=== PATIENT | male | born 1940 | race Caucasian/White ===

== ENCOUNTER 2017-07-11 15:00 | Inpatient (IN) | payer MEDICARE, BC ==
[~2017-07-11] VITALS: Ht 177.8 cm; Wt 112.0 kg
--- NOTE | ~2017-07-11 | HP ---
PATIENT'S NAME: [facility] AGE: 76 Y [address] ROOM: [place] [address] LOCATION: [facility] ADMIT DATE: 07/11/2017 History & Physical DISCHARGE DATE: FAMILY PHYSICIAN: Myron Aponte MD ATTENDING PHYSICIAN: STACIE VICTOR DATE OF SERVICE: CHIEF COMPLAINT: Right hip fracture, fall. HISTORY OF PRESENT ILLNESS: This is a 76-year-old male with a history of diabetes, paroxysmal AFib, on Pradaxa who presented to the emergency room after sustaining a mechanical fall and right hip injury. The patient tells me that he missed a step while walking out to the garage, lost his balance, and fell, sustaining a hip injury. The patient remembers falling and denies any loss of consciousness, dizziness, lightheadedness, either prior to falling or after falling. Denies any head injury. The patient complains of significant right hip pain, worsened by movement. The pain is well-tolerated while at rest. The patient of note has a history of paroxysmal AFib and is on Pradaxa and he took his last dose at around 9 a.m. this morning. The patient otherwise denies any chest pain, shortness of breath, dizziness, lightheadedness, nausea, vomiting, diarrhea, or constipation. Denies any fever or chills as well. PAST MEDICAL HISTORY: 1. Paroxysmal AFib. 2. History of aortic aneurysm, status post endovascular repair. 3. Type 2 diabetes. SOCIAL HISTORY: Denies any history of smoking, occasional alcohol use, or drug use. FAMILY HISTORY: The patient has a history of hypertension in his parents. REVIEW OF SYSTEMS: All systems have been reviewed and were all negative except as described in the HPI. PHYSICAL EXAMINATION: VITAL SIGNS: Blood pressure 109/65, pulse 116, respiratory rate 16, temperature 98, and saturating 95% on room air. GENERAL: The patient is awake, alert, and oriented x3 in no acute distress. HEAD: Normocephalic, atraumatic. PATIENT'S NAME: [facility] AGE: 76 Y [address] ROOM: [place] [address] LOCATION: [facility] ADMIT DATE: 07/11/2017 History & Physical DISCHARGE DATE: FAMILY PHYSICIAN: Myron Aponte MD ATTENDING PHYSICIAN: STACIE VICTOR EENT: Moist mucous membranes. No scleral icterus or conjunctival pallor noted. HEART: S1, S2, regular rate and rhythm, tachycardic. CHEST: Clear to auscultation bilaterally. ABDOMEN: Soft, nontender, nondistended. EXTREMITIES: Without edema. MUSCULOSKELETAL: Pain over his right hip with passive and active range of motion. SKIN: Without rash or lesions. NEURO: Grossly nonfocal, unable to move right lower extremity due to hip injury and pain. LABORATORY DATA: Reviewed. ASSESSMENT AND PLAN: 1. Right hip fracture, secondary to mechanical fall. The patient is to have hemiarthroplasty in about 48 hours. The patient took last dose of Pradaxa this morning and will need to be off Pradaxa for at least [address] Vizcaino and the plan is to take him to the OR on , which would be between 48 and 72 hours past Pradaxa. 2. Paroxysmal atrial fibrillation, he is on amiodarone at home, we will continue this and hold Pradaxa as above, and we will try to resume after surgery as soon as possible. The patient should not require bridging at this point. 3. Long-term anticoagulation use for stroke prophylaxis and atrial fibrillation. Management is as above. 4. Type 2 diabetes. The patient on oral hypoglycemic agents at home. We will hold these and use sliding scale insulin and monitor during hospitalization. 5. History of abdominal aortic aneurysm, status post endovascular repair. 6. Deep vein thrombosis prophylaxis, we will use sequential compression devices, and we will give him Pradaxa as soon as possible after surgery. STACIE VICTOR MD BG/modl /[id number] D: [id number] T: [id number] HISTORY & PHYSICAL
--- NOTE | ~2017-07-11 | ER ---
PATIENT'S NAME: YON PEÑA [facility] AGE: 76 Y [address] ROOM: [place] [address] LOCATION: [facility] ADMIT DATE: 07/11/2017 ER/Outpatient Report DISCHARGE DATE: FAMILY PHYSICIAN: Myron Aponte MD ATTENDING PHYSICIAN: STACIE MAURICIO CHIEF COMPLAINT: Fall and right hip pain. HISTORY OF PRESENT ILLNESS: Mr. Peña arrives by ambulance. He states that he was coming down some stairs, stumbled on the last stair for a few steps and fell on his right side. He denies striking his head. He denies having any other symptoms. He just has pain anytime he tries to move his right hip. He has not been able to stand up. He has no other pain. Denies loss of consciousness or other issue. He has a history of aorto, fem-fem grafting secondary to abdominal aortic aneurysm and is on Pradaxa for same. He is otherwise feeling fine. PAST MEDICAL HISTORY: Documented in the record and reviewed by me. SOCIAL HISTORY: Documented in the record and reviewed by me. MEDICATIONS: Documented in the record and reviewed by me. ALLERGIES: DOCUMENTED IN THE RECORD AND REVIEWED BY ME. REVIEW OF SYSTEMS: All systems were reviewed and negative except as noted in the HPI. PHYSICAL EXAMINATION: VITAL SIGNS: Blood pressure is 109/65, pulse 116, respiratory rate 16, temperature 98.6, and SpO2 is 95% on room air. Pain is rated at 2/10. GENERAL: Age-appropriate male, in no obvious pain or distress. Recumbent on the exam table. NEUROLOGIC: Awake and alert. GCS is 15. No focal deficits. No asymmetry. Limited by pain at the right hip. HEENT: Normocephalic and atraumatic. Eyes are PERRL. Oropharynx is clear. NECK: Supple. Trachea is midline. CHEST: Heart is regular rate and rhythm with no murmurs. LUNGS: Clear to auscultation bilaterally with no rhonchi, wheezes, or rales. ABDOMEN: Soft, nontender, and nondistended. No rebound or guarding. PATIENT'S NAME: YON PEÑA [facility] AGE: 76 Y [address] ROOM: [place] [address] LOCATION: [facility] ADMIT DATE: 07/11/2017 ER/Outpatient Report DISCHARGE DATE: FAMILY PHYSICIAN: Myron Aponte MD ATTENDING PHYSICIAN: STACIE MAURICIO BACK: Normal to inspection and palpation grossly. PELVIS: Stable. EXTREMITIES: The right lower extremity is notable for tenderness at the lateral trochanter and posterolateral aspects of the hip. No tenderness anteriorly. The leg is otherwise neurovascularly intact. No tenderness at the knee or ankle. The other extremities are grossly unremarkable. SKIN: Clean, dry, and intact. No obvious bleeding or bruising. LABORATORY DATA: Labs: CMS with no appreciable electrolyte abnormalities, renal abnormalities, or hepatobiliary abnormalities. CPK is 94. CBC: White count 6.2, hemoglobin 11.7, and platelets are 203,000. INR is 1.3. Blood type is B-positive. EKG appears to be atrial fibrillation with a rate of 100. IMAGING STUDIES: Plain films of the right hip revealed a femoral neck fracture, minimally displaced. IMPRESSION: 1. Fall. 2. Right femoral neck fracture. 3. Atrial fibrillation, undetermined etiology. Hemodynamically stable. EMERGENCY DEPARTMENT COURSE: The patient was seen and evaluated as above. He received the workup as noted above. He did not require any medications while in the emergency department. He remained hemodynamically stable and asymptomatic other than pain in his right hip. I do not think he needs scans of his head or neck. He states he clearly remembers everything and denies striking his head or neck. He has no headache or other neurological symptoms. He is on Pradaxa. He does have atrial fibrillation, but is hemodynamically stable. We will admit him to Dr. Mauricio, hospitalist for further evaluation and treatment of his medical status as well as consultation with Dr. Vizcaino, orthopedic surgeon for hip evaluation. All questions were answered and the patient was admitted without issues. MD FELIPA GRANADOS/flynn PATIENT'S NAME: YON PEÑA [facility] AGE: 76 Y [address] ROOM: [address] [address] LOCATION: [facility] ADMIT DATE: 07/11/2017 ER/Outpatient Report DISCHARGE DATE: FAMILY PHYSICIAN: Myron Aponte MD ATTENDING PHYSICIAN: STACIE MAURICIO /[id number] d: 07/12/17 1454 t: 07/17/17 0640, OUTPATIENT REPORT
--- NOTE | ~2017-07-11 | CON ---
PATIENT'S NAME: YON PEÑA [facility] AGE: 76 Y [address] ROOM: [place] [address] LOCATION: [facility] ADMIT DATE: 07/11/2017 Consultation DISCHARGE DATE: FAMILY PHYSICIAN: Myron Aponte MD ATTENDING PHYSICIAN: STACIE VICTOR REFERRING PHYSICIAN: SANTA PUGA MD HISTORY OF PRESENT ILLNESS: Mr. Peña is a 76-year-old male, who presents to the [facility] Emergency Room with a chief complaint of right hip pain after he tripped and fell while exiting his home to mow his lawn earlier today. He has been diagnosed with a displaced femoral neck fracture. The family has requested I care for his injury due to the fact that I cared for multiple family members in the past. He denies associated syncope or presyncope. He denies associated head trauma or loss of consciousness. He denies history of preexisting right hip pain. He denies numbness or paresthesias in the right leg. He denies neck pain. He denies pain in any of his 3 other extremities as a result of the fall. ALLERGIES: NO KNOWN DRUG ALLERGIES. MEDICATIONS: On admission: 1. Pradaxa. 2. Lipitor. 3. Carvedilol. 4. Ramipril. 5. Metformin. 6. Furosemide. ACTIVE MEDICAL PROBLEMS: Gbr-nyjnaho-nqwhxybdt diabetes mellitus, dyslipidemia. PAST SURGICAL HISTORY: Repair of abdominal aortic aneurysm several months ago. His last dose of Pradaxa was this morning. SOCIAL HISTORY: . He lives independently with his . At baseline, he is quite active (mowing his lawn with a push mower and ambulating in the community without an assistive device). He plans on remaining active in the foreseeable future. REVIEW OF SYSTEMS: He denies history of deep venous thrombosis. He denies head trauma or loss of consciousness. He denies chest pain or shortness of breath. He denies PATIENT'S NAME: YON PEÑA [facility] AGE: 76 Y [address] ROOM: [address] [address] LOCATION: [facility] ADMIT DATE: 07/11/2017 Consultation DISCHARGE DATE: FAMILY PHYSICIAN: Myron Aponte MD ATTENDING PHYSICIAN: STACIE VICTOR history of preexisting right hip pain. He denies pain elsewhere as a result of the incident. PHYSICAL EXAMINATION: GENERAL: Alert, oriented, well-hydrated, well-nourished, pleasant, cooperative, stoic elderly gentleman, who is in no distress. He is well- hydrated and well-nourished. RESPIRATORY: Respiratory rate is 16. There is no increased work of breathing. There is no stridor. MUSCULOSKELETAL: His right lower extremity is shortened and externally rotated versus the left. There is tenderness at the right hip and pain with passive range of motion of the right hip. There is no swelling or tenderness or deformity at either knee or either ankle. There is no pain with passive range of motion of the left hip. There are no active skin lesions, masses, muscle atrophy, or peripheral edema in either lower extremity. He demonstrates painless, unrestricted active range of motion of his cervical spine. There is no swelling, tenderness, or deformity throughout either upper extremity. He is able to actively dorsiflex and plantar flex both ankles with 4/5 motor strength. 2+ dorsalis pedis pulse bilaterally. RADIOGRAPHS: AP pelvis and AP and lateral radiographs of the right hip demonstrate a moderately displaced right femoral neck fracture. There is no hardware. There is no lytic lesion. There is no joint space narrowing. There is a transcervical fracture. Contralateral hip appears normal. IMPRESSION: Displaced right femoral neck fracture. RECOMMENDATIONS: I have discussed operative and nonoperative options. I have discussed relative risks, benefits, limitations, and alternatives to internal fixation versus hemiarthroplasty versus total hip arthroplasty. Based upon the fact that he is still quite active, I feel that his best chance of having one operation (and one operation only) would be for him to have a total hip arthroplasty. I have informed him that hemiarthroplasty would carry a significant risk of developing symptomatic acetabular articular cartilage degeneration (requiring PATIENT'S NAME: YON PEÑA [facility] AGE: 76 Y [address] ROOM: [address] [address] LOCATION: [facility] ADMIT DATE: 07/11/2017 Consultation DISCHARGE DATE: FAMILY PHYSICIAN: Myron Aponte MD ATTENDING PHYSICIAN: STACIE VICTOR conversion to total hip arthroplasty) in the next decade. I have discussed potential adverse sequelae of the injury itself (including deep venous thrombosis, pulmonary embolism, mortality, decubitus ulcer formation, and pneumonia). I have discussed technical aspects of surgery as well as risks and limitations thereof. We have specifically discussed the potential for infection, deep venous thrombosis, pulmonary embolism, mortality, neurovascular complications, blood transfusion risks, leg length discrepancy, instability, wear, loosening, and potential need for revision. The patient has been placed at bedrest. Mechanical DVT prophylaxis and incentive spirometry have been initiated. The patient's Pradaxa will be held and tentative plans for surgery have been made for day after tomorrow (pending medical clearance and operating room availability). The consulting medical team has recommended delay in surgery until day after tomorrow (because of the patient's anticoagulated status). MD INOCENCIA ARROYO/flynn /[id number] d: 07/12/17 0229 t: 07/15/17 1150, CONSULTATION REPORT
--- NOTE | ~2017-07-11 | DS ---
PATIENT'S NAME: [facility] AGE: 76 Y [address] ROOM: [address] [address] LOCATION: [facility] ADMIT DATE: 07/11/2017 Discharge Summary DISCHARGE DATE: 07/16/2017 FAMILY PHYSICIAN: Myron Aponte MD ATTENDING PHYSICIAN: Suni Mauricio ADMITTING DIAGNOSIS: Right hip fracture. DISCHARGE DIAGNOSIS: Right hip fracture with status post total hip arthroplasty. SECONDARY DIAGNOSES: 1. Chronic atrial fibrillation. 2. Diabetes mellitus type 2. 3. Hypertension. PROCEDURE: The patient had right total hip arthroplasty on July [address] Vizcaino. CONSULTATION: Orthopedics. HISTORY OF PRESENT ILLNESS: The patient is a 76-year-old male with a history of diabetes mellitus type 2, paroxysmal atrial fibrillation on Pradaxa who presented with mechanical fall. The patient reports that he lost his balance and denies any dizziness, chest pain, or any seizure-like activity. The patient complained of right hip pain. X-ray shows right hip fracture. HOSPITAL COURSE: The patient was admitted and was cleared for surgery. Dr. Vizcaino was consulted for right hip fracture. The patient had right total hip arthroplasty on 07/13/2017. The patient tolerated the procedure well. The patient during stay was seen by Physical Therapy and Occupational Therapy. The patient was restarted back on his Pradaxa. CONDITION: Stable. DISPOSITION: Home. DISCHARGE MEDICATIONS: See JAN. FOLLOWUP: Follow up with Dr. Vizcaino in 7-9 days. PHYSICAL EXAMINATION: VITAL SIGNS: Stable. CHEST: Clear to auscultation bilaterally. HEART: Regular rate and rate and rhythm. No murmurs, rubs, or gallops. ABDOMEN: Soft, nontender, and nondistended. PATIENT'S NAME: [facility] AGE: 76 Y [address] ROOM: [address] [address] LOCATION: [facility] ADMIT DATE: 07/11/2017 Discharge Summary DISCHARGE DATE: 07/16/2017 FAMILY PHYSICIAN: Myron Aponte MD ATTENDING PHYSICIAN: Suni Mauricio EXTREMITIES: Moves all extremities. CONTENT CURATOR: The patient is alert and oriented x3. Motor and sensory grossly intact. Greater than 30 minutes was spent on discharge planning. MD Priti RAINES /[id number] d: 07/16/17 1212 t: 07/24/17 0845, DISCHARGE SUMMARY
--- NOTE | ~2017-07-11 | OR ---
PATIENT'S NAME: [facility] AGE: 76 Y [address] ROOM: [place] [address] LOCATION: G3N ADMIT DATE: 07/11/2017 OR/Procedure Report DISCHARGE DATE: 07/16/2017 FAMILY PHYSICIAN: Myron Aponte MD ATTENDING PHYSICIAN: Suni Mauricio SURGEON: Lei Vizcaino MD CARPENTER HELPER MAINTENANCE: 1. Rosalio Rodriguez PA-C. 2. Jose Taylor CST/DIGITAL COMMUNICATIONS MANAGER. DATE OF PROCEDURE: 07/13/2017 CORRECT TEMPLATE INSERTED / 07-19-2017 / CANDICE PRE-OP DIAGNOSIS: Displaced right femoral neck fracture, right hip. POST-OP DIAGNOSIS: Displaced right femoral neck fracture, right hip. OPERATION: Right total hip arthroplasty. ANESTHESIA: General endotracheal anesthesia plus subcutaneous and periarticular local anesthesia. ESTIMATED BLOOD LOSS: Approximately 250 mL. DRAIN: None. SPECIMEN: None. COMPLICATIONS: None. IMPLANTS: 1. Robbin Trident titanium size 54 mm hemispherical uncemented acetabular shell with 1 dome hole cover and no screws. 2. Robbin X3 Neutral acetabular polyethylene liner, 10-degree eccentric with elevation centered at the 2 o' clock position. 3. Robbin Omnifit on BATOOL femoral size 8 cemented high offset femoral stem with 12 mm distal cement centralizer and medium cement restrictor. Taj- Kamaljit 2 mm cable and sleeve. 4. A 36 mm diameter metallic femoral head with +10 mm neck length. INDICATION FOR SURGERY: Dominique Peña is a 76-year-old male who presents with advanced right hip displaced right femoral neck fracture and associated severely compromised activities of daily living. The patient has decided to proceed with hip replacement after having been thoroughly counseled regarding the associated risks, benefits, and limitations. We have specifically reviewed the risks and implications of infection, deep venous thrombosis, pulmonary embolism, mortality, neurovascular complications, blood transfusion (and associated potential for disease transmission or transfusion reaction), PATIENT'S NAME: [facility] AGE: 76 Y [address] ROOM: [place] [address] LOCATION: [facility] ADMIT DATE: 07/11/2017 OR/Procedure Report DISCHARGE DATE: 07/16/2017 FAMILY PHYSICIAN: Myron Aponte MD ATTENDING PHYSICIAN: Suni Mauricio stiffness, instability, leg length discrepancy, mechanical deterioration of the components (due to wear and to loosening), and the potential need for revision. DESCRIPTION OF PROCEDURE: The patient was positioned in a lateral decubitus position with the right side up after administration of anesthesia and prophylactic antibiotics. An axillary roll was placed and the non-operative leg was well padded. The pelvis was locked perpendicularly to the floor on a pegboard. The right hip and entire operative extremity were prepped and draped with vigilant sterile technique. The patient's name as well as the intended operative side and procedure were confirmed with a verbal time-out involving myself, the circulating nurse, the scrub nurse, and the anesthesiologist. The right hip was approached through a standard posterolateral incision. The fascia elisa and the gluteus cleveland fascia were sharply divided in line with the overlying skin incision. The sciatic nerve was identified and was vigilantly protected throughout the entire case. The short external rotators and posterior capsule were divided from their respective femoral insertions and tagged with four #1 Ethibond sutures for later repair. The hip was posteriorly dislocated with combined flexion, adduction, and internal rotation. The femoral neck osteotomy was performed with an oscillating saw. Inspection of the femoral head demonstrated no degenerative changes. There is a displaced femoral neck fracture with vertical orientation of the fracture. The fracture extended down to approximately 5 mm proximal to the lesser trochanter. A prophylactic cerclage cable was placed immediately proximal to the lesser trochanter to prevent distal propagation of the femoral neck fracture. Circumferential acetabular exposure was obtained. Examination of acetabulum demonstrated no degenerative changes. There was a large hemarthrosis. There was no dysplasia. Remnants of the acetabular labrum were sharply thoroughly excised. The acetabulum was sequentially progressively reamed up to 53 mm with hemispherical power reamers. The final acetabular shell was impacted into position in 20 degrees of anteversion and 45 degrees of inclination. An excellent press-fit was obtained. No supplemental dome screw fixation was necessary. The patient was noted to be severely osteopenic. A neutral trial liner was inserted. Attention was next focused upon femoral preparation. The femoral canal initiator was utilized. The femoral canal was initially prepared for a size 8 press-fit Accolade II stem. However, due to the extent of osteopenia, I decided to convert to a cemented stem. The femoral canal was reamed by hand PATIENT'S NAME: [facility]INIQUE [facility] AGE: 76 Y [address] ROOM: [address] [address] LOCATION: [facility] ADMIT DATE: 07/11/2017 OR/Procedure Report DISCHARGE DATE: 07/16/2017 FAMILY PHYSICIAN: Myron Aponte MD ATTENDING PHYSICIAN: Suni Mauricio to a size 8. No power reaming was performed. The size 8 tapered conical reamer engaged the endosteal cortex of the proximal femur. The size 8 broach obtained excellent axial and rotational stability. Trial reductions with the above specified construct yielded acceptable stability and acceptable reproduction of leg length and offset. All trial components were removed. A size medium cement restrictor was placed to the appropriate depth after implantation of the acetabular liner. The femoral canal was thoroughly irrigated with bacteriostatic pulsatile saline lavage and a canal brush, and the canal was packed with vaginal packing prior to cementing the femoral component using two batches of Robbin simplex cement containing premixed Tobramycin. All excess cement was removed. After the cement had hardened, the final femoral head was impacted into position after cleansing of the trunnion. The final acetabular liner was inserted with excellent circumferential visualization of its locking mechanism to assure adequate deployment. The final femoral component was impacted into position. The femoral component achieved excellent axial and rotational stability. The trunnion of the femoral component was vigilantly protected prior to placement of the femoral head. The trunnion of the femoral component was thoroughly cleaned and dried prior to placement of the femoral head. The incision was thoroughly irrigated with bacteriostatic pulsatile saline lavage multiple times throughout the case. The entire joint space was thoroughly inspected and thoroughly irrigated to assure that there was no residual debris of any sort. A final reduction was then performed. After final reduction, the hip could be firmly externally rotated in full extension and zero degrees of abduction without anterior subluxation. In neutral rotation and zero degrees of abduction, the hip could be firmly flexed to 120 degrees without instability. At 90 degrees of flexion and zero degrees abduction, the hip could be internally rotated to 70 degrees before there was any hint of posterior subluxation. The posterior capsule and short external rotators were repaired through two drill holes in the posterior aspect of the greater trochanter. The fascia elisa and gluteus cleveland fascia were closed with multiple simple and [id number] interrupted # 1 Ethibond and #1 Vicryl sutures. Subcutaneous tissues were thoroughly re-irrigated with bacteriostatic pulsatile saline lavage. Subcutaneous tissues were re-approximated with simple buried interrupted #0 Vicryl sutures. The skin was closed with superficial buried interrupted 2-0 Vicryl sutures followed by a running subcuticular 3-0 Monocryl suture, followed by Octylseal, followed by Steri- Strips with benzoin, followed by an occlusive Mepilex dressing. PATIENT'S NAME: DOMINIQUE PEÑA [facility] AGE: 76 Y [address] ROOM: [place] [address] LOCATION: [facility] ADMIT DATE: 07/11/2017 OR/Procedure Report DISCHARGE DATE: 07/16/2017 FAMILY PHYSICIAN: Myron Aponte MD ATTENDING PHYSICIAN: Suni Mauricio There were no intra-operative complications. It should be noted that the physician's accounts payable assistant played an active, integral role throughout this entire operation. By providing expert retraction, they greatly facilitated and expedited safe and effective exposure of the proximal femur and acetabulum for preparation and implantation of the components. They were also actively involved in the patient's positioning, prepping and draping, as well as wound closure. MD INOCENCIA ARROYO/flynn /[id number] CORRECT TEMPLATE INSERTED / 07-19-2017 / KLD d: 07/14/17 0241 t: 07/28/17 2220, OPERATIVE SUMMARY
[2017-07-11 15:20] LABS: BASOPHIL % 0.2 %; EOSINOPHIL # 0.1 K/uL (0.0-0.5); EOSINOPHIL % 0.8 %; HEMATOCRIT 36.8 % (37.0-53.0); HEMOGLOBIN 11.7 g/dL (11.0-16.0); IMMATURE GRANULOCYTE % 0.5 %; LYMPHOCYTE # 0.7 K/uL (0.8-4.0); LYMPHOCYTE % 11.3 %; MCHC 31.8 gm/dL (32.0-36.5); MCV 91.3 fl (83.0-98.0); MONOCYTE # 0.5 K/uL (0.0-1.0); MONOCYTE % 8.1 %; MPV 8.8 fl (9.4-12.4); NEUTROPHIL # (ANC) 4.9 K/uL (1.4-9.0); NEUTROPHIL % 79.1 %; NRBC % 0 /100WBC (0-0.00); PLATELET COUNT 203 K/uL (150-450); RBC 4.03 M/uL (3.50-5.50); RDW-CV 14.1 % (11.9-14.6); WBC 6.2 K/uL (4.0-11.0)
[2017-07-11 15:29] LABS: INR - (THERAPEUTIC) 1.31 (0.92-1.07); PROTIME 13.8 SECONDS (9.8-11.4); PTT 49 SECONDS (25-32)
[2017-07-11 15:37] LABS: ANION GAP 10.2 (10.0-19.0); CALCIUM 8.5 mg/dL (8.5-10.5); CREATININE 1.1 mg/dL (0.6-1.3); POTASSIUM 4.2 mMol/L (3.7-5.1); TOTAL BILIRUBIN 0.6 mg/dL (0.0-1.5); TOTAL PROTEIN 7.2 g/dL (6.0-8.4)
--- NOTE | 2017-07-11 20:46 | NUR ---
76 Y/O MALE ADMITTED FOR A RIGHT FEMORAL NECK FRACTURE. PT WAS GOING DOWN SOME STEPS TODAY IN HIS GARAGE WHEN HE MISSED A STEP OR MISS STEPPED AND FELL. ALLERGY - AMIODARONE (CAUSED EYE/VISION PROBLEMS) MEDICAL & SURGICAL HISTORY - ABDOMINAL AORTIC ANEURISM THAT WAS REPAIRED IN 2016 AT [facility] IN [place]. A-FIB, SLEEP APNEA & C-PAP, DMII, NOCURIA, HX OF BROKEN BONES IN PAST NOT SURGICALLY REPAIRED, GLASSES, BILAT PEDAL NEUROPATHY FOR SEVERAL YEARS, FORMER SMOKER X20-30 YRS QUIT SMOKING IN 2002. SURGERIES - RT KNEE, AAA REPAIR. REPORT GIVEN TO PT PRIMARY CARE NURSE INGRIS TRINIDAD ADM EDUCATION DONE
[2017-07-11] MEDS ORDERED: PRADAXA150 MG PO (21:08)
[2017-07-11] MEDS ORDERED: LIPITOR40 MG PO (21:09)
[2017-07-11] MEDS ORDERED: COREG25 MG PO (21:09)
[2017-07-11] MEDS ORDERED: GLUCOPHAGE XR500 M1 PO (21:10)
[2017-07-11] MEDS ORDERED: RAMIPRIL2.5 MG PO (21:10)
[2017-07-11] MEDS ORDERED: LASIX20 MG PO (21:12)
[2017-07-11] MEDS ORDERED: CPAP INH (21:23)
--- NOTE | 2017-07-12 04:16 | NUR ---
Significant Event: Patient alert and oriented. VSS on room air. CPAP at HS. Right hip fracture. Pain with movement. Denies need for pain medication. AC/HS accuchecks. Plans for surgery . Pleasant and cooperative with cares. Follow up: continue
[2017-07-12] MEDS ORDERED: CALCIUM 500 +1 EACH PO (10:01)
[2017-07-12] MEDS ORDERED: GLUCOSAMINE-CH1 EA18 PO (10:02)
[2017-07-12] MEDS ORDERED: VITAMIN B-6100 MG PO (10:03)
[2017-07-12] MEDS ORDERED: VITAMIN B-12250 MCG PO (10:03)
--- NOTE | 2017-07-12 13:34 | NUR ---
A-NUTRITION CONSULT RECEIVED S/P R)HIP FX; TO OR 07/13 HT: 70 IN. WT: 112 KG. 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 DIET RX: DIABETIC. PO INTAKE 75-100% EST NUTR NEEDS: 3553-2800 KCALS (15-20 KCALS/KG) 112-134 GM PROTEIN (1.0-1.2 GM/KG) 1 ML FLUID/KCAL D-NOT AT NUTRITION RISK; NO NUTRITION DX IDENTIFIED I-CONTINUE W/CURRENT DIET RX M/E-WILL F/U PO INTAKE AND POC IN 5-7 DAYS
--- NOTE | 2017-07-12 13:48 | NUR ---
Introduced self and care management services to patient and daughter at bedside. Lives in [place] with . Will have surgery to repair hip tomorrow. Discussed dc planning, pt hoping to do well enough to go home on discharge. Discussed if not moving well or doesn't feel safe to go home, will qualify for Medicare covered skilled stay and gave him options of 4 SNF in [place] he could go to or SNF in [place]. He says he is hoping to be able to go home. [employer] will follow and assist with dc planning as needs identified.
--- NOTE | 2017-07-12 16:59 | NUR ---
Took over cares at 1430. Pt on bedrest and to be repositioned q 2 hr. Denies pain unless is moved. Edema of lower extremities. CSM WNL except says numbness of toes that he has had. IS use at 1500. Has CPAP. Plan OR Thurs at 0930 or monday at 0700. Due to Prodaxa use. Pt voids dark urine. Enc to drink more. IV infuses left hand. Telemetry on. No calls.
--- NOTE | 2017-07-13 02:06 | NUR ---
Significant Event: Toes are numb, but patient states this is not new. All other CSM's WNL. NPO since midnight. Accu check. CPAP. On 2 L of oxygen nasal cannula. Tachycardia. On telemetry with no calls. Bedrest. Temperature up to 99.9. Tylenol given at 2032. Voids without difficulty. Bedrest. OR planned for either today or Monday. Follow up:
[2017-07-13 05:51] LABS: HEMATOCRIT 34.8 % (37.0-53.0); HEMOGLOBIN 10.7 g/dL (11.0-16.0)
--- NOTE | 2017-07-13 10:38 | NUR ---
Pt daughter called that pt was headed down to [facility]. Message left on , Vinod phone.
--- NOTE | 2017-07-13 11:15 | NUR ---
Student nurse provided patient cares from 0630 to 0800 and then went down to surgery with patient. Jefry Salas RN, [facility] Instructor
--- NOTE | 2017-07-13 17:49 | NUR ---
Pt returned from OR at 1510 after having Rt total hip for fracture repair. He will start hrly VS for you at 1900. He denies pain. He was confused and groggy when returned, but mostly oriented now, telling stories and talking with nurses and family. Pt has mepilex dressing Rt hip, ice to hip. CSM WNL Rt lower extremity. Uses IS at 1250. No void yet. HR 100-110 and digoxin 250 mcg IV given at 1730. Pt on tele and no calls. Family at bedside. Pt had general anesthetic due to being on blood thinner. Was tachy and low BP preop. BP last was 112/74. Ot at 2 liters. [place], fentanyl and zofran in PACU.
--- NOTE | 2017-07-14 02:17 | NUR ---
Significant Event: Dressing is clean, dry and intact. CSM WNL. Voids without difficulty. 1-2 assist. Tachycardic. On 1 L of oxygen. CPAP. Nucynta at 2043. Tylenol at 2239. Denies pain. On telemetry with no calls. Follow up:
[2017-07-14 05:30] LABS: HEMATOCRIT 31.6 % (37.0-53.0); HEMOGLOBIN 9.9 g/dL (11.0-16.0)
--- NOTE | 2017-07-14 11:30 | NUR ---
SPOKE TO PATIENT AND HIS SPOUSE AT THE BEDSIDE. INTRODUCED CM AND OUR ROLE. PATIENT LIVES IN OWN HOME WITH SPOUSE AND IS PLANNING ON RETURNING THERE ONCE HE IS READY FOR DISCHARGE. HE HAS ALL HIS DME AND DOES NOT ANTICIPATE ANY DISCHARGE NEEDS AT THIS TIME. CM WILL CONT TO FOLLOW NEEDED
--- NOTE | 2017-07-14 17:48 | NUR ---
Pt alert and oriented. He is on telemetry and no calls this shift. Continues to be tachy with HR 92-112. Has own CPAP for HS use. Nucynta x1 this morning but has denied pain all shift and otherwise has had only routine tylenol. Dressing to hip dry and intact. Ice to hip. VOids per urinal. IS use hrly. Up amb in room and up to recliner. Will get up chair again this juve for supper. He is on room air. Hgb 9.9 today. Ate breakfast but not lunch. Supper ordered. Accuchecks AC and HS. Family here most of shift. CSM WNL and 1+ lower extremity edema.
--- NOTE | 2017-07-15 04:10 | NUR ---
Pt is AOx3. Pt is up one assist GBW. ACHS accuchecks. Pt is on tele with no calls. Pt tachycardic in 120's, order to give dose of coreg, which was held earlier in day. Pt has hx of afib and states he goes into and out of afib. HR improved 80-110. Pt had large loose BM, so he refused his miralax. Pt on room air. Mepilex is C/D/I. CSM's intact. Pt wears CPAP at night. Pt has refused pain medication other than scheduled tylenol. Pt goes by "Doc".
[2017-07-15 06:30] LABS: HEMATOCRIT 32.3 % (37.0-53.0); HEMOGLOBIN 10.2 g/dL (11.0-16.0)
--- NOTE | 2017-07-15 17:25 | NUR ---
Significant Event: Pt Aox3. VSS, CSM WNL. Dressing C/D/I. IV intact. Taking PO well. Voids without difficulty. Up with one assist, walker, and gait belt. Pain controlled Tylenol. Plans to go home tomorrow. Follow up:
--- NOTE | 2017-07-16 05:21 | NUR ---
Significant Event: Alert and oriented X3. On telemetry- no calls. Pt is in afib- heart rate as high as 130, heart rate is now 98-108. Othwer[place], VSS. Mepilex dressing to R) hip is CDI. CSM WNL. Ice to hip. Elevation. Tylenol given for pain this am. Follow up: Home today.
[2017-07-16] MEDS ORDERED: TYLENOL EXTRA500 MG PO (09:24)
[2017-07-16] MEDS ORDERED: COLACE100 MG PO (09:26)
[2017-07-16] MEDS ORDERED: MIRALAX17 GM PO (09:27)
[2017-07-16] MEDS ORDERED: NUCYNTA50 MG PO (09:28)
== END 2017-07-16 13:00 | disposition disaster alternative care site (69) | DRG 469 ==
LOC: GACC 15:00 → GMSU 18:08 → G3N 18:30
PROVIDERS: Emergency Medicine; Internal Medicine; Physician Assistant; ADMIT Internal Medicine
PROC: 0SR9029 Replacement of Right Hip Joint with Metal on Polyethylene Synthetic Substitute, Cemented, Open Approach (ICD-10-PCS; principal; 2017-07-13)
DX: S72.001A Fracture of unspecified part of neck of right femur, initial encounter for closed fracture (principal); G92 Toxic encephalopathy; I48.0 Paroxysmal atrial fibrillation; Z99.81 Dependence on supplemental oxygen; E11.9 Type 2 diabetes mellitus without complications; G47.33 Obstructive sleep apnea (adult) (pediatric); I48.2 Chronic atrial fibrillation; Z79.01 Long term (current) use of anticoagulants; T50.905A Adverse effect of unspecified drugs, medicaments and biological substances, initial encounter; W01.0XXA Fall on same level from slipping, tripping and stumbling without subsequent striking against object, initial encounter; E78.5 Hyperlipidemia, unspecified
CPT/HCPCS: C1713; C1776; J0690; J1100; J1160; J1885; J2001; J2250; J2405; J2795; J3010; J7030; J7042